=== PATIENT | male | born 1990 | race Caucasian/White ===

== ENCOUNTER 2021-12-27 04:33 | Emergency (ER) | payer BC ==
--- NOTE | 2021-12-27 04:38 | ED General ---
General Stated Complaint: HIVES,ITCHY Source of Information: Patient Exam Limitations: No Limitations History of Present Illness Date Seen by Provider: Dec 27, 2021 Time Seen by Provider: 04:38 Initial Comments 31-year-old male presents emerged department today for skin rash, itching. He woke up with symptoms this morning. Went to bed normally. No known exposures per his report. No chest pain, shortness of breath nausea or vomiting. He has never had similar symptoms in the past Allergies and Home Medications Allergies Coded Allergies: Penicillins (Verified Allergy, Unknown, 12/27/21) Patient Home Medication List Home Medication List Reviewed: Yes Review of Systems Review of Systems Constitutional: no symptoms reported EENTM: no symptoms reported Respiratory: no symptoms reported Cardiovascular: no symptoms reported Gastrointestinal: no symptoms reported Genitourinary: no symptoms reported Musculoskeletal: no symptoms reported Skin: pruritus, rash Psychiatric/Neurological: No Symptoms Reported Hematologic/Lymphatic: No Symptoms Reported Immunological/Allergic: no symptoms reported Past [id number]-Tuvtna-Jyhyyg Hx Patient Social History Tobacco Use?: Yes Use of E-Cig and/or Vaping dev: No Substance use?: No Alcohol Use?: No Family Medical History Reviewed Nursing Family Hx No Pertinent Family Hx Physical Exam Vital Signs Capillary Refill : Height, Weight, BMI Height: '" Weight: lbs. oz. kg; BMI Method: General Appearance: No Apparent Distress, WD/WN HEENT: PERRL/EOMI, Normal ENT Inspection, Pharynx Normal Neck: Full Range of Motion, Normal Inspection, Non Tender, Supple Respiratory: Chest Non Tender, Lungs Clear, Normal Breath Sounds, No Accessory Muscle Use, No Respiratory Distress Cardiovascular: Regular Rate, Rhythm, No Edema, No Gallop, No JVD, No Murmur, Normal Peripheral Pulses Gastrointestinal: Normal Bowel Sounds, No Organomegaly, No Pulsatile Mass, Non Tender, Soft Back: Normal Inspection, No CVA Tenderness, No Vertebral Tenderness Extremity: Normal Capillary Refill, Normal Inspection, Normal Range of Motion, Non Tender, No Calf Tenderness Neurologic/Psychiatric: Alert, Oriented x3, No Motor/Sensory Deficits, Normal Mood/Affect Skin: Warm/Dry, Other (Patient has hives and wheals diffusely about his upper extremities, anterior trunk.) Progress/Results/Core Measures Suspected Sepsis SIRS Temperature: Pulse: Respiratory Rate: Blood Pressure / Mean: Results/Orders Vital Signs/I&O Capillary Refill : Departure Communication (Admissions) Patient is hemodynamically stable. No indication of anaphylactic type reaction. Has skin reaction only at this time. Given steroids, Benadryl. Benadryl given to go home as he drove himself. Advised to use Benadryl and prednisone going forward. Discharged in stable condition. Impression Primary Impression: Paula Disposition: 01 HOME, SELF-CARE Condition: Stable Departure-Patient Inst. Referrals: NO,LOCAL PHYSICIAN (PCP) Primary Care Physician Patient Instructions: Paula Scripts Prednisone (Prednisone) 50 Mg Tab 50 MG PO DAILY for 5 Days, #5 TAB Prov: VAHID COPE DO 12/27/21 VAHID COPE DO Dec 27, 2021 04:38
[2021-12-27] MEDS ORDERED: PRD50T PO (04:54)
[2021-12-27 05:00] VITALS: BP 152/98
[2021-12-27] MEDS ORDERED: diphenhydrAMINE 25 MG TAB (BENADRYL) PO ONE (05:00)
[2021-12-27] MEDS ORDERED: predniSONE 20 MG TAB PO ONE (05:00)
== END 2021-12-27 05:02 | disposition home or self-care (01) ==
LOC: EDUNIT# 04:33 → ER 04:38
DX: L50.9 Urticaria, unspecified (principal); Z28.310 Unvaccinated for COVID-19
CPT/HCPCS: 99283